=== PATIENT | male | born 1960 | race Caucasian/White ===

== ENCOUNTER → 2024-12-24 14:53 | Outpatient (BNVA) | payer OTHER, SELFPAY | PROVIDERS: Family Provider Family Medicine; PCP Family Medicine; Visit Provider Registered Nurse Neonatal Intensive Care | DX: S40.012A Contusion of left shoulder, initial encounter (principal); X58.XXXA Exposure to other specified factors, initial encounter; M19.012 Primary osteoarthritis, left shoulder; R93.7 Abnormal findings on diagnostic imaging of other parts of musculoskeletal system | CPT/HCPCS: 73030 ==

== ENCOUNTER 2025-05-13 06:49 | Outpatient (CLI) | payer OTHER, SELFPAY ==
--- NOTE | 2025-05-13 07:15 | MR_ITS ---
WS: [id number] MRI LEFT SHOULDER HISTORY: persistant and now increasin pain months after injury COMPARISON: 12/24/2024 TECHNIQUE: Multiplanar sequences of the shoulder joint are submitted. Moderate to severe AC joint arthritis. Osteophytes and synovial thickening with a small amount of increased fluid along the AC joint. No dislocation. There is a small amount of fluid in the subacromial subdeltoid bursa. Moderate subacromial impingement by the acromion. Normal position of the biceps tendon. Biceps tendon is being slightly displaced by osteophytosis at the lesser tuberosity. No os acromion. Mild narrowing of the glenohumeral joint. No marrow edema or fracture. Full- thickness tear involving the distal supraspinatus tendon at the humeral head attachment. Tear does extend into the rotator cuff interval. The more proximal tendon demonstrates tendinopathy with fraying along the articular surfaces. No tear involving the subscapularis tendon or the infraspinatus tendon. Teres minor tendon is normal. Mild degenerative changes within the labrum but no tear. Increased intermediate signal in the superior labrum. MR/MR shoulder LT wo con* [id number] IMPRESSION: 1. Full-thickness insertion site tear of the supraspinatus tendon with extensi on into the rotator cuff interval. No retraction of the tendon. Large tear exte nding over a width of 1.7 cm. 2. Additional more proximal supraspinatus tendinopathy. 3. 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 4. Moderate subacromial impingement. 5. No marrow edema or fractures.
== END 2025-05-13 06:50 | disposition home or self-care (01) ==
LOC: RAD 06:51
PROVIDERS: PCP Family Medicine; Visit Provider Family Medicine
DX: S46.002A Unspecified injury of muscle(s) and tendon(s) of the rotator cuff of left shoulder, initial encounter (principal); M19.012 Primary osteoarthritis, left shoulder; M75.42 Impingement syndrome of left shoulder; X58.XXXA Exposure to other specified factors, initial encounter
CPT/HCPCS: 73221

== ENCOUNTER 2025-06-16 07:15 | Day surgery (SDC) | payer OTHER, SELFPAY ==
[2025-06-16] VITALS (13 sets, daily range): BP systolic 133–201; BP diastolic 73–104; PULSE 56–78; RESP 11–20; TEMP 36.2–36.6; O2SAT 91–96; BMI 38.5
--- NOTE | 2025-06-16 07:55 | ANES.PREANE2 ---
Pre-Anesthetic Assessment Height/Weight: Height 6 ft 2 in Weight 300 lb Preop Diagnosis: Left rotator cuff tear Operation Date: 06/16/25 09:05 Proposed Procedures p Shoulder Arthroscopy(Left) - Dustin Merino MD s POSSIBLE Open LEFT Rotator Cuff Repair Shoulder(Left) - Dustin Merino MD Was Beta Harriett taken within 24 hours: N/A Was Clonidine taken within 24 hours: N/A Last intake: Intake Last Liquid Date 06/15/25 Last Liquid Time 20:00 Last Solid Date 06/15/25 Last Solid Time 18:00 Social No alcohol and No tobacco Exam alert, oriented x 3, clear to auscultation bilaterally and regular rate & rhythm Airway Submandibular: within normal limits Cervical ROM: within normal limits Mallampati: Class III Dentition: full Anesthetic Plan ASA status: 3 Anesthesia: General and Regional (specify below) Other: No prior issues with anesthesia Patient recently had a colonoscopy 2 weeks ago without issues NPO since yesterday evening History of type 2 diabetes on metformin and Jardiance, last taken yesterday morning Denies any cardiac issues When asked about sleep apnea he states that he most likely has it. 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 Plan for general anesthesia with preop nerve block Medications/Allergies Home Medications ?Medication ?Instructions ?Recorded ?Confirmed ?Last Taken ?Type atorvastatin 10 mg tablet (Lipitor) 10 mg PO DAILY 12/24/24 06/16/25 06/15/25 20:00 History canagliflozin 50 mg-metformin 1 tab PO BID 12/24/24 06/16/25 06/15/25 20:00 History 1,000 mg tablet empagliflozin 25 mg tablet 25 mg PO DAILY 12/24/24 06/16/25 06/15/25 07:00 History (Jardiance) Allergies Allergy/AdvReac Type Severity Reaction Status Date / Time No Known Allergies Allergy Unverified 05/20/25 09:08 [facility] Anesthesia Social History Smoking and tobacco/nicotine status: never used tobacco/nicotine
--- NOTE | 2025-06-16 08:47 | SUR.PREOP ---
08:30 LEFT INTERSCALENE NERVE BLOCK PERFORMED BY DOCTOR BARRIOS, USING 30ML OF 0.5% ROPIVACAINE WITH 4MG OF DECADRON. 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
--- NOTE | 2025-06-16 08:53 | W.PM.OPSUD ---
Surgery/Procedure H&P Update DATE OF PROCEDURE: June 16, 2025 DATE H&P PERFORMED: 05/20/25 H&P UPDATE INFORMATION: I have reviewed H&P completed within last 30 days, I have examined patient prior to procedure and No changes to prior documentation PREOP DIAGNOSIS: Left rotator cuff tear PLANNED PROCEDURE: Operation Date: 06/16/25 09:05 Proposed Procedures p Shoulder Arthroscopy(Left) - Dustin Merino MD s POSSIBLE Open LEFT Rotator Cuff Repair Shoulder(Left) - Dustin Merino MD
--- NOTE | 2025-06-16 09:00 | ANES.PROC ---
Anesthesia Procedures Procedure/Date: 06/16/25 Nerve Block ^: Nerve Block 1: Main Anesthesia: other (100 mcg fentanyl and 2 mg Versed) Time Out Performed: Yes Consent: requested by attending/covering physician and from patient Laterality: Left Nerve block location: interscalene Anesthesia monitors applied: pulse oximetry, EKG, BP cuff and oxygen Nerve block position: supine Anesthetic Used: ropivicaine 0.5% Amount of anesthesia used (mL): 30 Ultrasound used to: recognize landmarks Nerve Stimulator Used?: Yes Interscalene/Femoral BLK: other needle (pjunk 4inch) Injection: neg aspiration of heme Patient Tolerated Procedure: well Complications: none Additional Comments: Decadron 4 mg added to block
[2025-06-16] MEDS: ceFAZolin 3,000 MG in sodium chloride 0.9% (plus) 100 ML 200 MG IV (09:08)
--- NOTE | 2025-06-16 10:43 | P.OP_ITS ---
Operative Report Date of procedure: June 16, 2025 Surgeon: Dustin Merino MD Procedure: Preoperative diagnosis: Internal derangement left shoulder Postoperative diagnosis: Left shoulder rotator cuff tear, acromial impingement, hypertrophic bursa Procedure: Diagnostic left shoulder arthroscopy with mini open rotator cuff repair, acromioplasty, bursectomy. Surgeon: Dustin Merino MD Control Room Technician: DAVID Ireland's assistance was necessary for positioning the patient, assistance during the procedure, wound closure and dressing placement. Anesthesia: General With preoperative scalene block EBL: Minimal Indications: Brandon is a 64-year-old white male presented to orthopedic clinics with debilitating left shoulder pain. He also came with a MRI in hand and after reviewing the MRI as well as the patient's history it appears that he had a rotator cuff tear. Clinical exam supported this. Therefore at this time he was offered a diagnostic shoulder arthroscopy with all indicated procedures. He was also offered a mini open rotator cuff repair if indicated. All risk benefits treatment alternatives were discussed with him he is agreeable to this at this time. Procedure: After obtaining consent patient had preoperative skin block ministered preop holding area. Patient then taken to the op room placed on the operative table supine position general anesthetic administered. Once good anesthesia achieved patient was placed up in the beachchair position and left arm shoulder prepped and draped usual fashion. Patient had been secured to the bed and well-padded. After surgical timeout standard posterior portals made with #11 blade and camera cams placed within the glenohumeral joint line. Anterior working portal was also placed just inferior to the distal clavicle. Evaluation of the shoulder demonstrated articular surfaces are intact. Anterior labrum demonstrated only some mild degenerative changes on its inner edge but there is no tears and no breakdown of the cartilage. No debridement necessary. Evaluation of the biceps tendon demonstrated was intact at its insertion and went through the biceps hiatus. Just posterior to this there is thinning of the rotator cuff and a through and through tear at the near the insertion of the supraspinatus tendon just posterior to the hiatus of the biceps. Therefore at this time repair was indicated. Mini open incision made off the anterior lateral aspect of the acromion. Sharp testicular taken down down subcutaneous tissue electrocautery used for hemostasis. Electrocautery was used to remove the biceps from the anterior portion of the acromion. Microsagittal saw was then used to do an acromioplasty as it was found the acromion was impinging down onto the area of the tendon that was tearing. Once this was removed rongeur was used to smooth out the bone as well as a small bone rasp. Very thick and tight bursa was encountered over the rotator cuff and this was debrided with pickups and electrocautery until adequate decompression. Tear of the rotator cuff was identified and freshened with a #15 blade. Subsequently this tear extended over approximately 2 cm worth of insertion of the rotator cuff. Three 2.9 juggernaut's were placed through drill holes along the course of the tear and equidistant's apart. Each of these anchors were double arm. Horizontal mattress sutures were then used to repair the rotator cuff back down to its original position. 1 piece of the anchor suture was then used to do a [id number] through a longitudinal tear that was going through the supraspinatus towards the midportion of the glenoid. At this point shoulders washed close, sterile irrigation. Shoulders with range of motion found to demonstrate no other abnormalities. Deltoid is then reapproximated 0 Vicryl [id number] sutures. Subcutaneous tissue reapproximated 2-0 Vicryl interrupted sutures skin was closed with skin sudhakar. Wounds are cleaned and dried with Xeroform gauze sterile gauze dressing and Silverlon dressing. Patient was then placed in abduction pillow and sling and awakened. Patient brought this recovery room in stable condition
--- NOTE | 2025-06-16 12:45 | ANE.PACU2 ---
Inpatient post-anesthesia follow up: Airway intact: Yes Vital signs: Temperature 97.7 F Pulse Rate 71 Respiratory Rate 18 Blood Pressure 158/89 Pulse Oximetry 95 Oxygen Delivery Me thod Room Air Oxygen Flow Rate 4 Fraction of Inspir ed Oxygen Hydration adequate: Yes Nausea and vomiting: No Pain level: 1 Mental status: Baseline
== END 2025-06-16 12:45 | disposition home or self-care (01) ==
PROVIDERS: PCP Family Medicine; Visit Provider Orthopaedic Surgery
PROC: (CPT 29805; principal; 2025-06-16 09:05)
PROC: (CPT 23412; 2025-06-16 09:05)
DX: M75.102 Unspecified rotator cuff tear or rupture of left shoulder, not specified as traumatic (principal); M75.42 Impingement syndrome of left shoulder; E11.9 Type 2 diabetes mellitus without complications; Z79.84 Long term (current) use of oral hypoglycemic drugs
CPT/HCPCS: 23412; 23130; 36416; 82962; C1713; J0690; J1100; J2405; J2704; J3010; J3490; J7030; J9999

== ENCOUNTER 2025-07-28 14:23 | Outpatient (RCR) | payer OTHER, SELFPAY | END 2025-08-15 23:59 | disposition home or self-care (01) | LOC: SPT 14:23 | PROVIDERS: Visit Provider Specialist | DX: S46.002D Unspecified injury of muscle(s) and tendon(s) of the rotator cuff of left shoulder, subsequent encounter (principal); X58.XXXD Exposure to other specified factors, subsequent encounter | CPT/HCPCS: 97110; 97161 ==

== ENCOUNTER 2025-08-16 05:00 | Outpatient (RCR) | payer OTHER, SELFPAY | END 2025-09-15 23:59 | disposition home or self-care (01) | LOC: SPT 05:00 | PROVIDERS: Visit Provider Specialist | DX: S46.002D Unspecified injury of muscle(s) and tendon(s) of the rotator cuff of left shoulder, subsequent encounter (principal); X58.XXXD Exposure to other specified factors, subsequent encounter | CPT/HCPCS: 97110 ==